=== PATIENT | male | born 1995 | race Caucasian/White ===

== ENCOUNTER 2016-09-29 03:40 | Emergency (ER) | payer OTHER ==
[~2016-09-29] VITALS: Ht 185.4 cm; Wt 82.8 kg
[~2016-09-29 03:40] MED LIST: AMOX-842 PO; IBUP-2213 PO
[2016-09-29 03:49] VITALS: BP 120/84
[2016-09-29 04:06] VITALS: BP 120/84
== END 2016-09-29 04:06 | disposition home or self-care (01) ==
LOC: MED 03:40
DX: G47.00 Insomnia, unspecified (principal); F15.10 Other stimulant abuse, uncomplicated; R03.0 Elevated blood-pressure reading, without diagnosis of hypertension; F17.210 Nicotine dependence, cigarettes, uncomplicated
CPT/HCPCS: 99283

== ENCOUNTER 2022-10-30 00:55 | Emergency (ER) | payer OTHER ==
[~2022-10-30] VITALS: Ht 182.9 cm; Wt 98.9 kg
[2022-10-30 01:02] VITALS: BP 136/55; PULSE 80; RESP 13; TEMP 96.9; O2SAT 95
[2022-10-30] MEDS ORDERED: LIDOCAINE 1% 500 MG/ 50 ML VIAL INJ ONE (01:10)
[2022-10-30] MEDS ORDERED: LIDOCAINE MPF 1% 5 ML ONE ×3 (01:14→01:22)
[2022-10-30] MEDS ORDERED: LIDOCAINE MPF 1% 15 ML ONE (01:19)
[2022-10-30 01:23] VITALS: BP 120/63; PULSE 72; RESP 18
[2022-10-30 01:24] VITALS: O2SAT 95
[2022-10-30] MEDS ORDERED: BACITRACIN OINT 500 UNITS/GM PKT TP ONE ×3 (01:53→01:55)
[2022-10-30] MEDS ORDERED: NAPR-54 PO (02:29)
== END 2022-10-30 02:35 | disposition home or self-care (01) ==
LOC: MED 00:55
DX: S51.812A Laceration without foreign body of left forearm, initial encounter (principal); F10.129 Alcohol abuse with intoxication, unspecified; F17.200 Nicotine dependence, unspecified, uncomplicated; F12.90 Cannabis use, unspecified, uncomplicated; F15.90 Other stimulant use, unspecified, uncomplicated; Z79.899 Other long term (current) drug therapy; W25.XXXA Contact with sharp glass, initial encounter; Y93.89 Activity, other specified; Y92.89 Other specified places as the place of occurrence of the external cause; Y99.8 Other external cause status
CPT/HCPCS: 12004; 90471; 90715; 99283; J2001

== ENCOUNTER 2022-11-08 18:06 | Emergency (ER) | payer OTHER ==
[~2022-11-08] VITALS: Ht 185.4 cm; Wt 99.8 kg
[~2022-11-08 18:06] MED LIST changes: -AMOX-842 PO; -IBUP-2213 PO; +NAPR-54 PO
[2022-11-08 18:15] VITALS: BP 124/68; PULSE 72; RESP 18; TEMP 98.5; O2SAT 97
[2022-11-08] MEDS ORDERED: NAPR-54 PO (18:46)
[2022-11-08] MEDS ORDERED: CEPH-588 PO (18:46)
== END 2022-11-08 19:06 | disposition home or self-care (01) ==
LOC: MED 18:06
DX: S51.812D Laceration without foreign body of left forearm, subsequent encounter (principal); L08.9 Local infection of the skin and subcutaneous tissue, unspecified; Z79.899 Other long term (current) drug therapy; X58.XXXD Exposure to other specified factors, subsequent encounter
CPT/HCPCS: 99283

== ENCOUNTER 2022-11-14 14:49 | Emergency (ER) | payer OTHER ==
[~2022-11-14] VITALS: Ht 185.4 cm; Wt 97.5 kg
[~2022-11-14 14:49] MED LIST changes: +CEPH-588 PO
[2022-11-14 15:07] VITALS: BP 102/63; PULSE 87; RESP 18; TEMP 98.9; O2SAT 97
[2022-11-14] MEDS ORDERED: BACI-418 TP (15:27)
[2022-11-14] MEDS ORDERED: BACITRACIN OINT 500 UNITS/GM PKT TP ONE (15:30)
== END 2022-11-14 16:44 | disposition home or self-care (01) ==
LOC: MED 14:49
DX: S41.111D Laceration without foreign body of right upper arm, subsequent encounter (principal); Z79.899 Other long term (current) drug therapy; X58.XXXD Exposure to other specified factors, subsequent encounter
CPT/HCPCS: 99282